=== PATIENT | female | born 1950 | race Asian ===

== ENCOUNTER 2016-05-29 20:01 | Emergency (ER) | payer SELFPAY, OTHER ==
[~2016-05-29] VITALS: Ht 165.1 cm; Wt 63.5 kg
[2016-05-29 20:29] LABS: PLATELET COUNT 262 K/uL (152-353)
[2016-05-29 20:46] LABS: POTASSIUM 3.3 mmol/L (3.6-5.2)
[2016-05-29 21:49] VITALS: BP 166/90; TEMP 99
== END 2016-05-29 21:49 | disposition home or self-care (01) ==
LOC: ED 20:01
DX: G45.9 Transient cerebral ischemic attack, unspecified (principal); E11.9 Type 2 diabetes mellitus without complications; I10 Essential (primary) hypertension
CPT/HCPCS: 36415; 80053; 81000; 83036; 85027; 99283

== ENCOUNTER 2017-10-02 10:05 | Outpatient (CLI) | payer OTHER ==
[2017-10-02 10:31] LABS: PLATELET COUNT 211 K/uL (152-353)
== END 2017-10-02 19:59 | disposition home or self-care (01) ==
LOC: LABW 10:05
PROVIDERS: Physician Assistant
DX: R42 Dizziness and giddiness (principal); I10 Essential (primary) hypertension; E11.9 Type 2 diabetes mellitus without complications
CPT/HCPCS: 36415; 80053; 80061; 82306; 83036; 84439; 84443; 85027

== ENCOUNTER 2017-11-08 10:33 | Outpatient (CLI) | payer OTHER | END 2017-11-08 20:40 | disposition home or self-care (01) | LOC: MAMMO 10:33 | DX: Z12.31 Encounter for screening mammogram for malignant neoplasm of breast (principal) ==

== ENCOUNTER 2020-08-30 10:07 | Outpatient (CLI) | payer OTHER | END 2020-08-30 23:59 | disposition home or self-care (01) | LOC: MAMMO 10:07 | PROVIDERS: ATTEND Nurse Practitioner Family | DX: Z12.31 Encounter for screening mammogram for malignant neoplasm of breast (principal) ==

== ENCOUNTER 2022-06-25 10:54 | Emergency (ER) | payer OTHER ==
[~2022-06-25] VITALS: Ht 157.5 cm; Wt 71.7 kg
[2022-06-25 11:00] VITALS: BP 157/81; TEMP 96.8
== END 2022-06-25 13:55 | disposition home or self-care (01) ==
LOC: ED 10:54
PROC: 2W3QX1Z Immobilization of Right Lower Leg using Splint (ICD-10-PCS; principal; 2022-06-25)
DX: S82.831A Other fracture of upper and lower end of right fibula, initial encounter for closed fracture (principal); W18.39XA Other fall on same level, initial encounter; Y92.89 Other specified places as the place of occurrence of the external cause
CPT/HCPCS: 99283